=== PATIENT | female | born 1985 | race African-American/Black ===

== ENCOUNTER 2022-11-01 11:16 | Emergency (ER) | payer OTHER ==
[~2022-11-01] VITALS: Ht 165.1 cm; Wt 76.0 kg
[2022-11-01] MEDS ORDERED: ACETAMINOPHEN 325MG TABLET PO ONE (11:45)
[2022-11-01 13:10] VITALS: BP 124/75
== END 2022-11-01 13:10 | disposition home or self-care (01) ==
LOC: ER 11:16
DX: O26.892 Other specified pregnancy related conditions, second trimester (principal); R10.9 Unspecified abdominal pain; Z3A.18 18 weeks gestation of pregnancy
CPT/HCPCS: 76805; 99284